=== PATIENT | male | born 1950 | race Caucasian/White ===

== ENCOUNTER 2016-06-16 08:47 | Emergency (ER) | payer OTHER ==
[~2016-06-16] VITALS: Ht 154.9 cm; Wt 58.0 kg
[~2016-06-16 08:47] MED LIST: ADVAIR HFA120 INHALA IH; ALPRAZOLAM0.5 MG PO; ANTI-DIARRHEAL2 M2 PO; ARICEPT10 MG PO; BENZTROPINE ME0.5 MG PO; BISOPROLOL-HCT1 EAC2 PO; COGENTIN0.5 MG PO; DAILY MULTIVIT1 EAC5 PO; DAILY VALUE1 EACH PO; DELTASONE20 M1 PO; DONEPEZIL HCL10 MG PO; GERI-LANTA LIQ355 ML PO; IMODIUM MS REL1 EACH PO; KETOTIFEN FUMARA5 M1 BOTH EYES; LEVAQUIN750 MG PO; LOPERAMIDE2 MG PO; MYLANTA GAS MA125 MG PO; MYSOLINE50 MG PO; NAMENDA XR7 MG PO; PAXIL30 MG PO; PREDNISONE20 MG PO; PRILOSEC20 MG PO; PRILOSEC40 MG PO; PRIMIDONE50 MG PO; PROAIR HFA8.5 GM IH; REMERON30 M2 PO; ROBITUSSIN DM118 ML PO; SEROQUEL12.5 MG PO; SYNTHROID75 MCG PO; TYLENOL REGULA325 MG PO; VENTOLIN HFA18 GM IH; XANAX0.5 MG PO; ZIPRASIDONE HCL60 MG PO
[2016-06-16 09:29] LABS: MCH 34.6 PG (29.0-34.0); MCHC 33.4 G/DL (30.0-36.0); MCV 103.5 FL (86-99); MEAN PLAT.VOLUME 9.3 uM^3 (9.0-12.4); PLATELET COUNT 224 K/uL (156-360); RBC DIS.WIDTH-CV 13.2 % (11.8-14.6); RBC DIS.WIDTH-SD 50.4 % (39-53); RED BLOOD COUNT 4.54 M/uL (4.00-5.50); WHITE BLOOD COUNT 8.9 K/uL (4.1-10.2)
[2016-06-16 09:37] LABS: CHLORIDE 105 mEq/L (99-109); POTASSIUM 3.9 mEq/L (3.7-5.4); SODIUM 138 mEq/L (136-147)
[2016-06-16 09:39] LABS: GLUCOSE 127 mg/dL (70-99); INTER. NORMALIZED RATIO 1.1; PROTHROMBIN TIME 11.7 (9.2-11.2); PTT 27.4 (25-32)
[2016-06-16 09:40] LABS: ANION GAP 13 MEQ/L (2-14)
[2016-06-16 09:43] LABS: GFR ESTIMATE (CALCULATED) > 59 mL/min/
[2016-06-16 09:44] LABS: UREA NITROGEN (BUN) 20 mg/dL (9-23)
[2016-06-16 09:49] LABS: TROP-I INTERPRETATION NEGATIVE; TROPONIN-I 0.01 ng/mL (0.0-0.30)
[2016-06-16 11:20] VITALS: BP 133/90
== END 2016-06-16 11:20 | disposition home or self-care (01) ==
LOC: EME 08:47
PROVIDERS: Emergency Medicine
DX: I48.91 Unspecified atrial fibrillation (principal); J45.909 Unspecified asthma, uncomplicated; E78.5 Hyperlipidemia, unspecified; E07.9 Disorder of thyroid, unspecified
CPT/HCPCS: 71010; 80048; 84484; 85027; 85610; 85730; 93005; 99281; 99285

== ENCOUNTER → 2017-05-30 | Outpatient (CLI) | payer OTHER | END | disposition home or self-care (01) | LOC: RAD 11:00 | DX: R13.12 Dysphagia, oropharyngeal phase (principal); Z87.01 Personal history of pneumonia (recurrent) | CPT/HCPCS: 74230; 92611 GN; G8996 GN CJ; G8997 GN CJ; G8998 GN CJ ==